=== PATIENT | female | born 1970 | race American Indian/Alaskan Native ===

== ENCOUNTER 2017-08-30 23:05 | Emergency (ER) | payer OTHER ==
[2017-08-30] MEDS ORDERED: REGLAN IV ONE (23:16)
[2017-08-30] MEDS ORDERED: MORPHINE IV ONE (23:23)
--- NOTE | 2017-08-30 23:25 | Emergency Department Report ---
HPI - General Time Seen by Provider: 08/30/17 23:08 - HPI HPI: 47-year-old female presents to the emergency department via EMS from home with complaint of a 3 to four-day history of a generalized headache that is associated with some uncontrolled blood pressure. The patient does have a history of hypertension but says she has been off of her medications for about 3 or 4 months. She cannot currently remember which medications she takes. She has not taken anything for her symptoms prior presentation. EMS found the patient to have a blood pressure with a systolic greater than 230. She has little bit of photophobia but denies any vision change, slurred speech or any other neurological deficits. The headache is currently 8 out of 10 in intensity. It has caused her to have some nausea and she did have 1 or 2 episodes of vomiting prior to presentation. ED Past Medical Hx - Past Medical History Hx Hypertension: Yes - Social History Smoking Status: Current Every Day Smoker Substance Use Type: None - Medications Home Medications: Home Medications Medication Instructions Recorded Confirmed Last Taken Type Ibuprofen [Motrin] 600 mg PO Q8H PRN #30 tablet 12/26/16 Unknown Rx Ondansetron [Zofran Odt] 4 mg PO Q8HR PRN #20 tab.rapdis 12/26/16 Unknown Rx amLODIPine [Norvasc] 10 mg PO DAILY #30 tab 12/26/16 Unknown Rx traMADol [Ultram 50 MG tab] 50 mg PO Q6HR PRN #20 tablet 12/26/16 Unknown Rx ED Review of Systems ROS: Stated complaint: NV Other details as noted in HPI Comment: All other systems reviewed and negative Constitutional: denies: chills, fever Eyes: other (photophobia). denies: eye pain, eye discharge, vision change ENT: denies: ear pain, throat pain Respiratory: denies: cough, shortness of breath, wheezing Cardiovascular: denies: chest pain, palpitations Gastrointestinal: vomiting. denies: abdominal pain Genitourinary: denies: urgency, dysuria, discharge Musculoskeletal: denies: back pain, joint swelling, arthralgia Skin: denies: rash, lesions Neurological: headache. denies: numbness Physical Exam - Physical Exam Physical Exam: GENERAL: The patient is well-developed well-nourished. HENT: Normocephalic. Atraumatic. Patient has moist mucous membranes. EYES: Extraocular motions are intact. Pupils equal reactive to light bilaterally. No nystagmus. NECK: Supple. Trachea is midline. CHEST/LUNGS: Clear to auscultation. There is no respiratory distress noted. HEART/CARDIOVASCULAR: Regular. There is no tachycardia. There is no murmur. ABDOMEN: Abdomen is soft, nontender. Patient has normal bowel sounds. There is no abdominal distention. SKIN: Skin is warm and dry. NEURO: The patient is awake, alert, and oriented. The patient is cooperative. The patient has no focal neurologic deficits. The patient has normal speech. Cranial nerves II through XII grossly intact. MUSCULOSKELETAL: There is no tenderness or deformity. There is no evidence of acute injury. ED Medical Decision Making - Lab Data Result diagrams: 08/30/17 23:22 08/30/17 23:22 - EKG Data EKG shows normal: sinus rhythm, axis, intervals (prolonged VA interval), QRS complexes, ST-T waves Rate: bradycardia (52 bpm) - EKG Data When compared to previous EKG there are: previous EKG unavailable Interpretation: other (sinus bradycardia, mild prolongation of VA interval) - Radiology Data Radiology results: report reviewed EXAM: CT HEAD/BRAIN WO CON HISTORY: LAMA, hypertensive urgency COMPARISON: November [address] TECHNIQUE: Axial images obtained skull base through vertex. FINDINGS: No acute intraparenchymal hemorrhage. There is high attenuation material within the pre pontine cistern and 3rd ventricle concerning for subarachnoid hemorrhage and small focus of intraventricular hemorrhage. Subtle prominence of the ventricular system without chun hydrocephalus at this time. Acosta-white differentiation is maintained. Stable remote lacunar infarct of the left basal ganglia measuring 4 millimeters. Calvarium is intact. Remote fracture of the medial wall left orbital rim. Mild mucosal thickening the paranasal sinuses. Mastoid air cells are clear. IMPRESSION: Small amount of high attenuation material along the pre pontine cistern concerning for subarachnoid hemorrhage. This could relate to perimesencephalic venous bleed. There also appears to be a small amount of hemorrhage within the 3rd ventricle. There is subtle prominence of the ventricular system without chun hydrocephalus. CT angiography of the head suggested for further evaluation. Basilar artery aneurysm with rupture not excluded. Stable remote lacunar infarct of the left basal ganglia. Findings discussed with Dr. Gray on August 31, 2017 at 0015 hours EST. Transcribed By: LMA Dictated By: WENDY SKINNER MD Electronically Authenticated By: WENDY SKINNER MD Signed Date/Time: 08/31/17 0019 - Medical Decision Making Patient presents with a 3 to four-day history of a bad headache, mostly in the frontal region, as well as some very elevated blood pressure and medication noncompliance. She has a GCS of 15 and does not appear to have any focal deficits. A stat CT scan of the head was done and came back showing concern for a subarachnoid hemorrhage in the prepontine cistern and some small intraventricular third ventricle bleeding. Labs have been unremarkable. Patient was started on a nicardipine drip. I spoke with [facility], and Dr. Cardona who is the neuro crystalizer, and the patient has been accepted for transfer to their facility. There've been multiple re-evaluations of the patient and she remains awake and oriented. PATIENT'S labs, imaging will be sent with the patient. Dictation software was used for certain portions of this chart and therefore there may be some dictation errors within these notes. - Differential Diagnosis subarachnoid hemorrhage, migraine headache, tension headache Critical Care Time: Yes Critical care time in (mins) excluding proc time.: 35 Critical care attestation.: If time is entered above; I have spent that time in minutes in the direct care of this critically ill patient, excluding procedure time. Critical care time spent on this patient and doing her initial evaluation, multiple re-evaluations , titration of the antihypertensive medication, ordering interpretation of labs and imaging, discussion with the radiologist and discussion with the accepting neuro critical care physician. Critical Care Time: 35 minutes ED Disposition Clinical Impression: Subarachnoid hemorrhage, Accelerated hypertension Disposition: DC/TX-70 ANOTHER TYPE HLTHCARE Is pt being admited?: Yes Condition: Serious Instructions: Hypertension (ED) Referrals: ADRIAN BURGER MD [Other] - 3-5 Days Time of Disposition: 01:12
[2017-08-30 23:35] LABS: Basophils # (Auto) 0.1 K/mm3 (0.0-0.1); Basophils % (Auto) 0.7 % (0.0-1.8); Eosinophils # (Auto) 0.5 K/mm3 (0.0-0.4); Eosinophils % (Auto) 4.9 % (0.0-4.3); Hematocrit 42.2 % (30.3-42.9); Hemoglobin 13.9 gm/dl (10.1-14.3); Lymphocytes # (Auto) 4.4 K/mm3 (1.2-5.4); Lymphocytes % (Auto) 43.5 % (13.4-35.0); Mean Corpuscular HGB Conc 33 % (30-34); Mean Corpuscular Hemoglobin 28 pg (28-32); Mean Corpuscular Volume 86 fl (79-97); Monocytes # (Auto) 0.9 K/mm3 (0.0-0.8); Monocytes % (Auto) 8.6 % (0.0-7.3); Platelet Count 213 K/mm3 (140-440); Red Blood Count 4.93 M/mm3 (3.65-5.03); Red Cell Distribution Width 14.5 % (13.2-15.2)
[2017-08-30 23:55] LABS: Alanine Aminotransferase 15 units/L (7-56); Albumin 4.3 g/dL (3.9-5); BUN/Creatinine Ratio 9; Blood Urea Nitrogen 6 mg/dL (7-17); Calcium 9.1 mg/dL (8.4-10.2); Hemolysis Index 12; Lipase 43 units/L (13-60)
--- NOTE | 2017-08-31 00:25 | Cat Scan Report ---
FINAL REPORT EXAM: CT HEAD/BRAIN WO CON HISTORY: LAMA, hypertensive urgency COMPARISON: November [address] TECHNIQUE: Axial images obtained skull base through vertex. FINDINGS: No acute intraparenchymal hemorrhage. There is high attenuation material within the pre pontine cistern and 3rd ventricle concerning for subarachnoid hemorrhage and small focus of intraventricular hemorrhage. Subtle prominence of the ventricular system without chun hydrocephalus at this time. Acosta-white differentiation is maintained. Stable remote lacunar infarct of the left basal ganglia measuring 4 millimeters. Calvarium is intact. Remote fracture of the medial wall left orbital rim. Mild mucosal thickening the paranasal sinuses. Mastoid air cells are clear. IMPRESSION: Small amount of high attenuation material along the pre pontine cistern concerning for subarachnoid hemorrhage. This could relate to perimesencephalic venous bleed. There also appears to be a small amount of hemorrhage within the 3rd ventricle. There is subtle prominence of the ventricular system without chun hydrocephalus. CT angiography of the head suggested for further evaluation. Basilar artery aneurysm with rupture not excluded. Stable remote lacunar infarct of the left basal ganglia. Findings discussed with Dr. Gray on August 31, 2017 at 0015 hours EST.
[2017-08-31] MEDS ORDERED: CARDENE 50 MG in NACL 0.9% 250ML 230 ML IV SCH (01:00)
[2017-08-31 01:44] VITALS: BP 167/75
[2017-08-31] MEDS ORDERED: MORPHINE IV ONE (01:49)
[2017-08-31 05:32] LABS: Bacteria,Urine 1+ /HPF (Negative); Bilirubin,Urine NEG (Negative); Blood,Urine SM (Negative); Color,Urine Yellow (Yellow); Urobilinogen,Urine < 2.0 mg/dL (<2.0)
== END 2017-08-31 02:25 | disposition other institution (70) ==
LOC: ED 23:05
DX: I60.9 Nontraumatic subarachnoid hemorrhage, unspecified (principal); I10 Essential (primary) hypertension; F17.200 Nicotine dependence, unspecified, uncomplicated
CPT/HCPCS: 36415; 70450; 80053; 81001; 83690; 85025; 93005; 93010; 96374; 96375; 96376; 99291; J2270; J2765; J7050